=== PATIENT | female | born 1985 | race Native Hawaiian/Other Pacific Islander ===

== ENCOUNTER 2017-05-19 13:53 | Emergency (ER) | payer BC ==
[~2017-05-19] VITALS: Ht 154.9 cm; Wt 88.5 kg
[2017-05-19 14:00] VITALS: TEMP 98.1
[2017-05-19 14:37] LABS: PLATELET COUNT 438 K/uL (152-353)
[2017-05-19 14:41] LABS: POTASSIUM 3.6 mmol/L (3.6-5.2); SODIUM 137 mmol/L (136-145)
[2017-05-19 15:32] VITALS: BP 132/86
== END 2017-05-19 15:39 | disposition home or self-care (01) ==
LOC: ED 13:53
DX: R10.30 Lower abdominal pain, unspecified (principal)
CPT/HCPCS: 36415; 74022; 80048; 81000; 81025; 85027; 99283

== ENCOUNTER 2018-01-10 20:48 | Emergency (ER) | payer BC ==
[~2018-01-10] VITALS: Ht 157.5 cm; Wt 86.2 kg
[2018-01-10 20:52] VITALS: TEMP 98.8
[2018-01-10 21:49] VITALS: BP 135/82
== END 2018-01-10 21:49 | disposition home or self-care (01) ==
LOC: ED 20:48
DX: S00.85XA Superficial foreign body of other part of head, initial encounter (principal); W45.8XXA Other foreign body or object entering through skin, initial encounter
CPT/HCPCS: 90471; 90715; 99283

== ENCOUNTER 2019-03-02 17:31 | Emergency (ER) | payer BC ==
[~2019-03-02] VITALS: Ht 157.5 cm; Wt 89.4 kg
[2019-03-02 19:07] LABS: POTASSIUM 3.7 mmol/L (3.6-5.2); SODIUM 142 mmol/L (136-145)
[2019-03-02 19:08] LABS: PLATELET COUNT 393 K/uL (152-353)
[2019-03-02 20:16] VITALS: BP 122/80; TEMP 98.4
== END 2019-03-02 20:17 | disposition home or self-care (01) ==
LOC: ED 17:31
PROVIDERS: Family Medicine
DX: R51 Headache (principal); R20.2 Paresthesia of skin; R06.00 Dyspnea, unspecified
CPT/HCPCS: 36415; 80053; 81000; 82550; 84484; 85027; 93005; 99284

== ENCOUNTER 2019-08-14 17:39 | Emergency (ER) | payer BC ==
[~2019-08-14] VITALS: Ht 157.5 cm; Wt 89.4 kg
[2019-08-14 17:46] VITALS: BP 158/107; TEMP 97
== END 2019-08-14 18:49 | disposition home or self-care (01) ==
LOC: ED 17:39
DX: N92.0 Excessive and frequent menstruation with regular cycle (principal); R10.31 Right lower quadrant pain
CPT/HCPCS: 81000; 81025; 87070; 87490; 87590; 99284